=== PATIENT | male | born 1995 | race Caucasian/White ===

== ENCOUNTER 2025-01-01 14:05 | Emergency (ER) | payer BC, SELFPAY ==
[2025-01-01 14:15] VITALS: BP 114/69; PULSE 90; RESP 18; TEMP 37.1; O2SAT 97; BMI 33.9
--- NOTE | 2025-01-01 14:23 | ED.ABDPAIN ---
HPI - Abdominal Pain General Time Seen by Provider: 14:23 Date Seen: 01/01/25 Chief Complaint: Abdominal Pain Stated Complaint: abdominal pain that goes down right leg Time Seen by Provider: 01/01/25 14:11 Source: patient and RN notes reviewed Mode of arrival: ambulatory Limitations: no limitations History of Present Illness HPI narrative: This 29-year-old male his coming in with severe right-sided abdominal pain that starts in his right flank and goes to his right abdomen down towards his right groin and testicle. It is associated with him feeling cold but no documented fever. He has been unable to tolerate any orals, not even any pain medicines due to nausea and vomiting from this. He had a normal bowel movement yesterday. He is known to have a horseshoe kidney. He states he had a prior episode of pain like this before, they thought it was a kidney stone but did not actually identify it per his report. He had some type of surgery as an infant on his abdomen, he is not aware of what it was. Pain feels worse when he tries to get up or sit down. He is not feeling it go into the leg itself, just goes into the groin. MD elicited complaint: abdominal pain Related Data Home Medications ?Medication ?Instructions ?Recorded ?Confirmed No Known Home Medications 01/01/25 01/01/25 Allergies Allergy/AdvReac Type Severity Reaction Status Date / Time amoxicillin Allergy Severe Anaphylaxis Verified 01/01/25 14:20 Penicillins Allergy Severe Anaphylaxis Verified 01/01/25 14:20 Review of Systems Status of ROS Reports: 6 or more systems reviewed and unremarkable except as noted in History and below [facility] Medical History (Updated 01/01/25 @ 16:12 by Terri Zepeda MD) Horseshoe kidney ?Q63.1 - Lobulated, fused and horseshoe kidney (ICD-10) Social History Smoking Status: Never smoker Do you use any of these nicotine containing products: None Second hand tobacco smoke exposure: No How often do you have a drink containing alcohol: never How often do you have six or more drinks on one occasion: Never AUDIT-C Alcohol total score: 0 Non-prescribed substance use: denies use service: No Exam Const: Vital Signs, click to edit/add: Vital Signs - 24 hr 01/01/25 14:15 01/01/25 15:04 01/01/25 15:17 Temperature 98.7 F 99.1 F Pulse Rate [Pulse Oximeter] 90 69 Respiratory Rate 18 16 Blood Pressure [Ri ght Upper Arm] 114/69 134/59 L Pulse Oximetry 97 98 98 Oxygen Delivery Me thod Room Air Room Air This 29-year-old male is alert, interactive, lying in bed, seen in Stab 2 due to other beds being full. He is able speak in complete sentences, sclera clear, conjugate gaze. Speech is normal. Lungs are clear, good air entry, no wheeze or crackles, no tachypnea, no accessory muscle use. CV regular rate and rhythm, no murmur, normal S1-S2. Abdomen has normal bowel sounds, is soft but complains of diffuse tenderness throughout his abdomen when I palpate. There is no true rebound or guarding but he does get tears in his eyes when I palpate his abdomen. No hernias noted on examination at this time. Skin visualized without rash, skin is warm and dry. Documenting provider has reviewed patient's vital signs: yes Course Course ED Course: Patient does seem to have abdominal pain that is been atypical for usual kidney stone presentation but he does have a horseshoe kidney. We did discuss that he is at risk for kidney stones as well as UTIs. Need to collect urinalysis. This could be infectious or stone pathology. Could be other intra-abdominal pathology and we will initiate workup with a CT without IV contrast, he understands if we needed, may need to proceed with subsequent IV contrast if we have other questions to be answered. Will initiate IV, give him fluids, Zofran and Toradol to start. Will get basic labs as well as urinalysis. Bowel obstruction is also a consideration given vomiting and abdominal exam; may need to consider CT imaging with contrast if needed for that etiology. Reevaluation(s) Time of Reevaluation #1: 16:08 Reevaluation #1: Have reviewed with patient his CT scan, provided him a copy. Did offer further IV fluids, do wonder if he has gastroenteritis. They had to hold his nurse that his daughter had been sick with some similar symptoms recently. They do need to get their daughter home, she had back surgery recently and wants to lie down. Reviewed normal reassuring labs, he does have kidney stones but nothing obstructing. We discussed that this is likely gastroenteritis. They decline further treatment or workup here, will give them a prescription of Zofran from [facility]. Vital Signs Vital signs: Initial Vital Signs Temperature 98.7 F 01/01/25 14:15 Temperature Source Temporal Artery Scan 01/01/25 14:15 Pulse Rate 90 01/01/25 14:15 Respiratory Rate 18 01/01/25 14:15 Blood Pressure 114/69 01/01/25 14:15 Blood Pressure Mean 84 01/01/25 14:15 Blood Pressure Position Supine 01/01/25 14:15 Pulse Oximetry 97 01/01/25 14:15 Oxygen Delivery Method Room Air 01/01/25 14:15 Vital Signs Temperature 98.7 F 01/01/25 14:15 Pulse Rate 90 01/01/25 14:15 Respiratory Rate 18 01/01/25 14:15 Blood Pressure 114/69 01/01/25 14:15 Pulse Oximetry 97 01/01/25 14:15 Oxygen Delivery Method Room Air 01/01/25 14:15 Temperature 99.1 F 01/01/25 15:17 Pulse Rate 69 01/01/25 15:17 Respiratory Rate 16 01/01/25 15:17 Blood Pressure 134/59 L 01/01/25 15:17 Pulse Oximetry 98 01/01/25 15:17 Oxygen Delivery Method Room Air 01/01/25 15:17 Medications Administered Medications: Generic Name Dose Route Start Last Admin Trade Name Freq PRN Reason Stop Dose Admin Sodium Chloride 1,000 mls @ 500 mls/hr 01/01/25 14:33 01/01/25 16:07 0.9 % Sodium Chloride 1000 Ml IV 01/01/25 16:32 Infused .Q2H CORINNE Infusion Discontinued Medications Generic Name Dose Route Start Last Admin Trade Name Freq PRN Reason Stop Dose Admin Ketorolac Tromethamine 15 mg 01/01/25 14:32 01/01/25 14:58 Ketorolac 15 Mg/Ml Inj IVP 01/01/25 14:33 15 mg ONCE ONE Administration Ondansetron HCl 4 mg 01/01/25 14:32 01/01/25 14:58 Ondansetron 2 Mg/Ml Inj IVP 01/01/25 14:33 4 mg ONCE ONE Administration MDM - Abdominal Pain Lab Data Attestation: I reviewed the patient's lab results. Labs: Lab Results 01/01/25 01/01/25 01/01/25 Range/Units 14:45 14:50 14:59 WBC 7.07 (4.50-11.00) K/uL RBC 6.03 H (4.30-5.90) m/uL Hgb 16.8 (13.5-17.5) gm/dL Hct 47.9 (37.0-53.0) % MCV 79 L (80-100) fL MCH 28 (26-34) pg MCHC 35 (32-36) gm/dL RDW Coeff of Juvenal 12.6 (11.5-15.5) % Plt Count 230 (140-440) K/uL Neut % (Auto) 80.0 H (42.0-72.0) % Lymph % (Auto) 11.5 L (20-44) % Bacon % (Auto) 6.8 (0.0-11.0) % Eos % (Auto) 1.4 (0.0-7.0) % Baso % (Auto) 0.3 (0.0-3.0) % Neut # (Auto) 5.70 (1.7-7.0) K/uL Lymph # (Auto) 0.80 L (0.90-2.90) K/uL Bacon # (Auto) 0.50 (0.00-0.90) K/UL Eos # (Auto) 0.10 (0.00-0.50) K/uL Baso # (Auto) 0.02 (0.00-0.30) K/uL Abs Immat Gran (auto) 0.00 (0.00-0.30) K/uL Imm/Tot Granulo (auto) 0.0 % Sodium 136 (135-149) mmol/L Potassium 3.8 (3.6-5.1) mmol/L Chloride 98 (96-114) mmol/L Carbon Dioxide 22 (20-32) mmol/L Anion Gap 16 H (7-15) mEq/L BUN 11 (5-24) mg/dL Creatinine 1.1 (0.5-1.5) mg/dL Estimated Creat Clear 106.80 Estimated GFR 92 ml/min Glucose 85 (60-115) mg/dL Lactate 0.8 (0.5-1.9) mmol/L Calcium 9.1 (8.4-10.6) mg/dL Urine Color Yellow (Yellow) Urine Appearance Clear (Clear) Urine pH 6.0 (5.0-8.5) Ur Specific Dilley 1.025 (1.000-1.030) Urine Protein Negative (Negative) Urine Glucose (UA) Negative (Negative) Urine Ketones 4+ A (Negative) Urine Blood Negative (Negative) Urine Nitrite Negative (Negative) Urine Bilirubin 1+ A (Negative) Urine Urobilinogen 0.2 (0.2-1.0) Ur Leukocyte Esterase Negative (Negative) Urine RBC 0-2 (0-2) Urine WBC 0-2 (0-5) Ur Squamous Epith Cells Few (None-Few) Urine Bacteria Few A (None) Imaging Data CT scan - abdomen: Attestation: I have reviewed the pertinent imaging results. Radiologist's impression: Patient: PILI PINEDA Facility:?[facility] Patient ID:?[id number] Site Patient ID:?[id number]. Site :?[id number] Study:?CT-Abdomen/Pelvis -01/01/2025 2:54:54 PM Ordering Physician:?Duane Murray Final Report: Indication: RIGHT ABD/GROIN PAIN Technique: CT abdomen/pelvis without IV contrast Comparison: None Findings: Lower thorax: No acute abnormality. Abdomen/pelvis: The liver, gallbladder and biliary system, spleen, pancreas, and adrenal glands are unremarkable. Horseshoe kidney with no obvious renal mass/lesion. Nonobstructing 4 millimeter stone at the upper pole the left kidney and nonobstructing 2 millimeter stone near the midline fusion of the kidneys. No hydroureteronephrosis. The bladder is unremarkable. The seminal vesicles, prostate, and imaged external genitalia are unremarkable. No evidence of bowel obstruction or inflammation. The appendix is normal. No free air, free fluid, or fluid collections. No pathologically enlarged lymph nodes throughout the abdomen or pelvis. The vasculature is unremarkable. Soft tissue/musculoskeletal: Unremarkable Impression: 1. No CT evidence of an acute process involving the abdomen or pelvis. 2. Horseshoe kidney with nonobstructing renal calculi measuring up to 4 millimeters in greatest dimension. Please note that all CT scans at this facility use dose modulation, iterative reconstruction, and/or weight-based dosing when appropriate to reduce radiation dose to as low as reasonably achievable. Dictated by Arsen Schwarz MD @ 01/01/2025 3:26:46 PM (Electronic Signature) Discharge Plan Discharge Clinical Impression: Gastroenteritis, Horseshoe kidney with renal calculus Patient Disposition: Home, Self-Care Condition: Stable Instructions: Kidney Stones (ED), Gastroenteritis (ED) Additional Instructions: The cause for your abdominal pain and vomiting is presumably gastroenteritis. This is likely a viral illness and should be self-limited. You may end up getting diarrhea. Use the Zofran as needed for nausea or vomiting. Drink frequent small sips of fluids, can advanced your diet back to normal as your appetite returns. If you feel you are worsening, have further concerns, please return to the ER for further evaluation. Activity Level: Activity as Tolerated Prescriptions: No Action No Known Home Medications Follow Up/Referrals: Provider,Not a Local [Primary Care Provider, Family Practice] Stand Alone Forms: [employer] (now [employer]) Info Instructions
--- NOTE | 2025-01-01 14:32 | CRLHL7_ITS ---
For Patients: As a result of the Century Cures Act, medical imaging exams and procedure reports are released immediately into your electronic medical record. You may view this report before your referring provider. If you have questions, please contact your health care provider. Indication: RIGHT ABD/GROIN PAIN Technique: CT abdomen/pelvis without IV contrast Comparison: None Findings: Lower thorax: No acute abnormality. Abdomen/pelvis: The liver, gallbladder and biliary system, spleen, pancreas, and adrenal glands are unremarkable. Horseshoe kidney with no obvious renal mass/lesion. Nonobstructing 4 millimeter stone at the upper pole the left kidney and nonobstructing 2 millimeter stone near the midline fusion of the kidneys. No hydroureteronephrosis. The bladder is unremarkable. The seminal vesicles, prostate, and imaged external genitalia are unremarkable. No evidence of bowel obstruction or inflammation. The appendix is normal. No free air, free fluid, or fluid collections. No pathologically enlarged lymph nodes throughout the abdomen or pelvis. The vasculature is unremarkable. Soft tissue/musculoskeletal: Unremarkable Impression: 1. No CT evidence of an acute process involving the abdomen or pelvis. 2. Horseshoe kidney with nonobstructing renal calculi measuring up to 4 millimeters in greatest dimension. Please note that all CT scans at this facility use dose modulation, iterative reconstruction, and/or weight-based dosing when appropriate to reduce radiation dose to as low as reasonably achievable. Dictated by Arsen Schwarz MD @ 01/01/2025 3:26:46 PM (Electronically Signed)
--- OUTSIDE RECORDS SUMMARY | 2025-01-01 14:44 | XMS_ITS | Clinical Summary ---
Author Organization [facility] Address [address] [place] [address] Care Team Providers Care Forestry Conservation Worker Name Role Phone No Ref-Primary, Physician Primary Care Provider Allergies Active Allergy Reactions Criticality Noted Date Comments Amoxicillin 07/22/2006 Penicillins 06/24/2018 Medications VENTOLIN HFA 108 (90 Base) MCG/ACT inhaler INHALE TWO PUFFS BY MOUTH EVERY 4 HOURS NEEDED 0 03/27/2018 Active Active Problems Problem Noted Date Diagnosed Date Abdominal pain 03/10/2019 Immunizations Immunization Administration Dates Next Due Flu, Unspecified 12/24/2018 Family History Medical History Relation Comments Seizure Disorder Mother Relation Status Comments Father Alive Mother Social History Tobacco Use Types Packs/Day Years Used Date Smoking Tobacco: Former Cigarettes 0.3 0.1 1 03/17/2018 - 02/09/2019 Smokeless Tobacco: Never Alcohol Use Standard Drinks/Week Comments Yes 0 (1 standard drink = 0.6 oz pure alcohol) Alcoholic Drinks/day: 1 a week, 2 beers Adolescent Education Answer Date Record ed Getting School Help Needed Not on file 12/01 Sex and Gender Information Value Date Recorded Sex Assigned at Not on file Legal Sex Male 4:21 AM [employer] Gender Identity Not on file Sexual Orientation Not on file Last Filed Vital Signs Vital Sign Reading Time Taken Comments Blood Pressure 106/64 01/29/2019 4:14 PM [employer] Pulse 52 01/29/2019 4:14 PM [employer] Temperature 36.5 C (97.7 F) 01/29/2019 4:14 PM [employer] Respiratory Rate 16 01/29/2019 4:14 PM [employer] Oxygen Saturation 99% 01/29/2019 4:14 PM [employer] Inhaled Oxygen Concentration - - Weight 113 kg (249 lb 2 oz) 03/10/2019 12:50 PM [employer] Height 181.6 cm (5' 11.5) 03/10/2019 12:[address] Body Mass Index 34.26 03/10/2019 12:50 PM [employer] Plan of Treatment Not on file Insurance [place] Care Teams Forestry Conservation Worker Relationship Specialty Start Date End Date No Ref-Primary, Physician PCP - General 01/29/19
--- OUTSIDE RECORDS SUMMARY | 2025-01-01 14:44 | XMS_ITS | Clinical Summary ---
Author Organization [facility] Address [address] [place] [address] Care Team Providers Care Tail Board Man Name Role Phone No Primary/Referring, Phy Primary Care Provider Unavailable Source Comments You are receiving this document as you are listed as the primary care provider,follow-up provider, or the patient has been referred to you for consultation.This is in compliance with the Medicare and[facility] EHR Incentive Program,which states Providers who transition their patient to another setting of careor provider of care or refers their patient to another provider of care shouldprovide summary care record for each transition of care or referral. MOGL Allergies Active Allergy Reactions Criticality Noted Date Comments Amoxicillin 01/31/2002 rash Penicillins 10/24/2002 Medications * This document contains information received from the source organization and may not represent a complete record from that organization. sertraline (ZOLOFT) 50 MG tabletIndication s:Anxiety and depression (HRC) Take 1 Tablet by mouth daily for 60 days. 30 Tablet 1 0 Active ALBUterol sulfate HFA 108 (90 Base) MCG/ACT inhalerIndicatio ns:Moderate persistent asthma with acute exacerbation (HRC) Inhale 2 Puffs every 4 hours as needed for Wheezing or Shortness of Breath. 8.5 g 3 1 Active Additional Information Patient not taking.Reported on 03/31/2022 benzonatate (TESSALON) 100 MG capsule Take 1-2 Capsules by mouth three times a day as needed for Cough. 30 Capsule 1 Active Additional Information Patient not taking.Reported on 03/31/2022 nirmatrelvir & ritonavir 300/100 (PAXLOVID) 300 mg & 100 mg tablet combo packIndications: COVID-19 Take 2 nirmatrelvir tablets (300mg) and 1 ritonavir tablet (100mg) by mouth twice daily for 5 days 30 Each 3 Active Additional Information Patient not taking.Reported on 02/09/2023 diclofenac (VOLTAREN) 75 MG enteric coated tabletIndication s:Cervical radiculopathy,Ac curyung pain of left shoulder Take 1 Tablet (75 mg) by mouth two times a day with meals. Do not take in combination with other NSAIDs. 20 Tablet 5 Active Active Problems Problem Noted Date Diagnosed Date Sleep disorder 07/25/2007 Anxiety state 04/12/2004 Overview (11/23/2014): Epic Mood disorder in conditions classified elsewhere Immunizations Immunization Administration Dates Next Due DTaP 02/11/1996, 5,02/07/1994,11/28/18 94 Flu Vac (3+ yrs) 12/20/2004, 4,01/20/2003,12/10/19 02,12/28/2000 HepB Ped/Adol (0-18 yrs) 05/21/1994,1993,0 1993 IPV (Polio) 09/11/1999, 5,02/07/1994,11/28/18 94 Influenza, Unspecified Formulation 12/24/2018 MCV4 (Menactra) 07/21/2007 MMR 09/11/1999,01/27/1995 Pfizer Monovalent 12+ Purple Top 05/24/2020,03/02/2020 Tdap 06/30/2016,09/23/2004 Varicella 09/13/2010 Family History Medical History Relation Name Comments Anxiety Mother Depression Mother Coronary Artery Disease Maternal Grandfather Diabetes Maternal Grandfather Cancer, Breast Maternal Grandmother Coronary Artery Disease Paternal Grandfather Hypertension Paternal Grandfather Relation Name Status Comments Father Alive Mother Alive Maternal Grandfather Maternal Grandmother Paternal Grandfather Paternal Grandmother Social History Tobacco Use Types Packs/Day Years Used Date Smoking Tobacco: Former Smokeless Tobacco: Never Alcohol Use Standard Drinks/Week Comments Yes 0 (1 standard drink = 0.6 oz pur e alcohol) AUDIT-C Answer Date Recorded Q1: How often do you have a drink containing alc ohol? 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 Not on file Not on file Last Filed Vital Signs Vital Sign Reading Time Taken Comments Blood Pressure 134/89 03/31/2022 9:11 AM LACE TEARING SUPERVISOR Pulse 68 03/31/2022 9:11 AM LACE TEARING SUPERVISOR Temperature 36.7 C (98 F) 05/02/2024 9:13 AM CDT Respiratory Rate 24 03/31/2022 9:11 AM LACE TEARING SUPERVISOR Oxygen Saturation 97% 03/31/2022 9:44 AM LACE TEARING SUPERVISOR Inhaled Oxygen Concentration - - Weight 117.9 kg (260 lb) 05/02/2024 9:13 AM CDT Height 180.3 cm (5' 11) 05/02/2024 9:13 AM CDT Body Mass Index 36.26 05/02/2024 9:13 AM CDT Plan of Treatment Health Maintenance Due Date Last Done Comments Hep C Screening (Preventive Services) 1993 HIV Screening (Preventive Services) 2009 HPV Vaccine (1 - 3-dose SCDM series) 2020 Adult Preventive Visit 03/28/2021 , 09/13/2010, 06/11/2009, Additional history exists COVID-19 Vaccine ( season) 2024 05/24/2020, 05/03/2020 Influenza Vaccine (#1) 2024 9, 12/20/2004, 12/08/2003, Additional history exists DTaP/Tdap/Td Vaccine (7 - Tdap) 06/30/2026 06/30/2016, 09/23/2004, 02/11/1996, Additional history exists Zoster/Shingles Vaccine (1 of 2) 09/29/2043 HepB Vaccine Completed 05/21/1994, 1007/1993, 1993 IPV (Polio) Vaccine Completed 09/11/1999, 05/21/1994, 02/07/1994, Additional history exists MCV4 Vaccine Aged Out 07/21/2007 No longer eligi ble based on patient's age to complete this topic HepA Vaccine Aged Out No longer eligi ble based on patient's age to complete this topic Hib Vaccine Aged Out No longer eligi ble based on patient's age to complete this topic Meningococcal B Vaccine Aged Out No l onger eligible based on patient's age to complete this topic Pneumococcal Vaccine Aged Out No long er eligible based on patient's age to complete this topic Insurance [facility] MED[employer] CHOICE Care Teams Tail Board Man Relationship Specialty Start Date End Date No Primary/Referring, Phy PCP - General 01/29/15
--- OUTSIDE RECORDS SUMMARY | 2025-01-01 14:44 | XMS_ITS | Encounter Summary ---
[facility] Address [address] [address] Care Team Providers Care Cardiology Technologist Name Role Phone No Primary/Referring, Phy Primary Care Provider Unavailable Encounter Details Date Type Department Care Team (Late st Contact Info) Description 05/04/2019 Correspondence None No Primary/Referring, Phy NEW PATIENT HISTORY Social History Tobacco Use Types Packs/Day Years [...] PHQ-2 Answer Date Recorded PHQ-2 Score 1 03/28/2019 Sex and Gender Information Value Date Recorded Sex Assigned at Male 05/02/2024 4:44 PM CDT Legal Sex Male 7:07 AM CDT Gender Identity Male 05/02/2024 4:44 PM CDT Sexual Orientation Not on file 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
--- OUTSIDE RECORDS SUMMARY | 2025-01-01 14:44 | XMS_ITS | Patient Health Record ---
Author Organization [facility] Address [address] [place], [place] [address] Care Team Providers Care Furniture Repairer Name Role Phone Dionte WHITMORE, John Primary Care Provider [phone] Ken[address] WHITMORE, Damaso Unavailable [phone] Allergies Allergen (clinical drug ingredient) Drug/Non Drug Allergy documented on EMR Reaction Allergy Type Onset Date Status Cat dander cat dander (uncoded) Unknown Allergy Active cockroach (uncoded) Unknown Allergy Active Dog dander dog dander (uncoded) Unknown Allergy Active dust mites (uncoded) Unknown Allergy Active Pollen tree pollen (uncoded) Unknown Allergy Active PCN Unknown Drug Allergy Active Reason For Referral No Information Medications Medication SIG (Take, Route, Frequency, Duration) Notes Start Date End Date Status PredniSONE 20mg 30 mg by mouth twice daily for 3-5 days when in red zone Active Albuterol HFA 108 (90 Base) MCG/ACT 2 puffs inhalation every 4 hrs as needed Active PROzac Active Problems Problem Type SNOMED Code ICD Code Onset Dates Problem Status W/U Status Risk Notes Problem Exercise-ind uced asthma (97607138) Asthma exercise (493.81) Active confirmed Problem Asthma (567681541) Asthma (493.90) Active confirmed Plan Of Treatment No Information Insurance Providers Payer Name Payer Address Payer Phone Subscriber Number Group Number Insured Name Patient Relationship to Insured Coverage Start Date Coverage End Date [address] [address] [place] [address] [phone] [id number] Sandra Augustin Child - Insured has Financial Responsibility 0
--- OUTSIDE RECORDS SUMMARY | 2025-01-01 14:44 | XMS_ITS | Clinical Summary ---
Author Organization [facility] Address [facility] [place] [address] Care Team Providers Care Production Sampler Name Role Phone Clinic, No Pcp Or Primary Care Provider Unavaila ble Allergies Active Allergy Reactions Criticality Noted Date Comments Amoxicillin 07/22/2006 Penicillins *Unknown 01/31/2002 rash Medications albuterol HFA 90 mcg/actuation inhalerIndicati ons:Bronchitis Inhale 2 Puffs by mouth every 4 hours if needed. 1 Inhaler 9 Active azithromycin (Zithromax Z-Dominick) 250 mg tabletIndicatio ns:Bronchitis Two tablets the first day, one daily days 2-5 6 Tablet Active Additional Information Patient not taking.Reported on 12/21/2024 Active Problems Problem Noted Date Diagnosed Date Unspecified hypothyroidism Unspecified asthma(493.90) Encounters Date Type Department Care Team Description 12/21/2024 9:30 AM CDT Office Visit [facility] [address] [place] [address] Donna Martinez PA Referral (Patient like to have referral for sleep study ) 12/21/2024 Travel from Last 3 Months Immunizations Immunization Administration Dates Next Due DTaP 02/11/1996,05/21/1994,02/07/1994 ,1993 Hepatitis B (Peds) 05/21/1994,1993, 994 Inactivated Polio Vaccine 09/11/1999,05/21/1994, 02/07/1994,1993 Influenza Virus, Unspecified 12/24/2018 Influenza, IIV3 (Age >=3 years) 12/21/19 05,12/08/2003,01/20/2003,12/09/2001 ,12/28/2000 MMR 09/11/1999,01/27/1995 Meningococcal Vaccine (Menactra) 07/21/2007 Tdap 06/30/2016,10/15/2004,09/23/2004 Varicella Vaccine 09/13/2010 Family History Medical History Relation Name Comments Good Health Father Heart Disease Maternal Grandfather Good Health Mother Relation Name Status Comments Father Maternal Grandfather Mother Social History Tobacco Use Types Packs/Day Years Used Date Smoking Tobacco: Former Cigarettes Passive Smoke Exposure: Past Smokeless Tobacco: Never Tobacco Cessation:Counseling Given: Not Answered Alcohol Use Standard Drinks/Week Comments No 0 (1 standard drink = 0.6 oz pur e alcohol) PHQ-2 Answer Date Recorded PHQ-2 TOTAL SCORE 0 12/21/2024 Social Connections Answer Date Recorded Do you often feel lonely or isolated from those around you? 0 12/21/2024 Alcohol Use Answer Date Recorded How often do you have a drink containing alcohol ? 1 12/21/2024 How many drinks containing a lcohol do you have on a typical day when you are drinking? 0 12/21/2024 How often do you have five or more drinks on one occasion? 0 12/21/2024 Financial Resource Strain Answer Date R ecorded Difficulty of Paying Living Expenses 3 12/21/2024 Difficulty of Paying Living Expenses Not on file 12/21/2024 Food Insecurity Answer Date Recorded Do you worry your food will run out before you are able to buy more? 1 12/21/2024 Transportation Needs Answer Date Record ed Does lack of transportation keep you from medica l appointments? 1 12/21/2024 Does lack of transportation keep you from work, meetings or getting things that you need? 1 12/21/2024 Housing Stability Answer Date Recorded What is your housing situation today? 1 12/21/2024 Utilities Answer Date Recorded Do you have trouble paying f or utilities (for example, heat, electricity, water, phone)? 1 12/21/2024 Sex and Gender Information Value Date Recorded Sex Assigned at Not on file Legal Sex Male 5:20 AM RETURN AGENT Gender Identity Not on file Sexual Orientation Not on file Obstetrics History Last Filed Vital Signs Vital Sign Reading Time Taken Comments Blood Pressure 98/76 12/21/2024 9:38 AM CDT Pulse 62 12/21/2024 9:38 AM CDT Temperature 36.4 C (97.6 F) 12/21/2024 9:38 AM CDT Respiratory Rate 14 12/21/2024 9:38 AM CDT Oxygen Saturation 98% 12/21/2024 9:38 AM CDT Inhaled Oxygen Concentration - - Weight 115.8 kg (255 lb 6.4 oz) 12/21/2024 9:38 AM CDT Height 177.9 cm (5' 10.04) 12/21/2024 9:38 AM C DT Body Mass Index 36.61 12/21/2024 9:38 AM CDT Plan of Treatment Upcoming Encounters Date Type Department Care Team (Late st Contact Info) Description 03/24/2025 8:45 AM RETURN AGENT Office Visit [facility] [address] [place] [phone] Perri Camejo MD [address] [place] [phone] Health Maintenance Due Date Last Done Comments HIV for age 15-65 2008 Hepatitis C screening for age 18-79 09/29/2011 HPV series for age 9-45 (1 - 3-dose SCDM series) 2020 Influenza Vaccine (#1) 2024 9, 12/20/2004, 12/08/2003, Additional history exists BMI (ht and wt on same day) for age 18+ 12/21/2025 12/21/2024, 11/19/2015 Depression screening for age 12+ 12/21/2025 12/21/2024 Tetanus booster 06/30/2026 06/30/2016, 09/24, 09/23/2004 RSV vaccine for adults or (1 - 1-dose 75+ series) 2068 Hepatitis B series for 19+ Completed 05/21, 1993, 1993 Pneumococcal series for age 6-49 Aged Out No longer eligible based on patient's age to complete this topic Insurance [employer] OF NON-UT-ITS [facility] Care Teams Production Sampler Relationship Specialty Start Date End Date Clinic, No Pcp Or . PCP - General 11/19/15
[2025-01-01 14:58] LABS: Lactate* 0.8 mmol/L (0.5-1.9)
[2025-01-01] MEDS: ONDANSETRON 2 MG/ML inj 4 MG IVP (14:58)
[2025-01-01 15:00] LABS: Appearance Urine Clear (Clear)
[2025-01-01 15:03] LABS: Hematocrit* 47.9 % (37.0-53.0); Hemoglobin* 16.8 gm/dL (13.5-17.5); Immature Granulocytes Abs Auto 0.00 K/uL (0.00-0.30); Immature Granulocytes Pct Auto 0.0 %; Mean Corpuscular HGB Conc 35 gm/dL (32-36); Mean Corpuscular Hemoglobin 28 pg (26-34); Mean Corpuscular Volume 79 fL (80-100); RDW Coefficient of Variation % 12.6 % (11.5-15.5); Red Blood Count* 6.03 m/uL (4.30-5.90); White Blood Count* 7.07 K/uL (4.50-11.00)
[2025-01-01 15:04] VITALS: O2SAT 98
[2025-01-01 15:10] LABS: Lymphocytes Absolute Auto 0.80 K/uL (0.90-2.90)
[2025-01-01 15:11] LABS: Slide Review Reflex No
[2025-01-01 15:16] LABS: Chloride* 98 mmol/L (96-114); Potassium* 3.8 mmol/L (3.6-5.1); Sodium* 136 mmol/L (135-149)
[2025-01-01 15:17] VITALS: BP 134/59; PULSE 69; RESP 16; TEMP 37.3; O2SAT 98
[2025-01-01 15:19] LABS: Anion Gap 16 mEq/L (7-15); Blood Urea Nitrogen* 11 mg/dL (5-24); Calcium* 9.1 mg/dL (8.4-10.6); Carbon Dioxide* 22 mmol/L (20-32); Creatinine* 1.1 mg/dL (0.5-1.5); Est. Creatinine Clearance* 106.80; Estimated Glomerular Filt Rate 92 ml/min; Glucose* 85 mg/dL (60-115)
== END 2025-01-01 16:16 | disposition home or self-care (01) ==
PROVIDERS: Emergency Provider Family Medicine
DX: K52.9 Noninfective gastroenteritis and colitis, unspecified (principal); N20.0 Calculus of kidney; Q63.1 Lobulated, fused and horseshoe kidney
CPT/HCPCS: 36415; 74176; 80048; 81001; 83605; 85025; 87086; 94761; 96361; 96374; 96375; 99284; 99285; J1885; J2405; J7030